=== PATIENT | female | born 1965 | race Caucasian/White ===

== ENCOUNTER 2017-02-01 02:04 | Observation (INO) | payer OTHER ==
[~2017-02-01] VITALS: Ht 167.6 cm; Wt 118.8 kg
[~2017-02-01 02:04] MED LIST: ALLOPURINOL300 MG PO; FARXIGA PO; LISINOPRIL-HCT1 EAC1 PO; METFORMIN HCL500 MG PO; PREMARIN0.3 MG PO
[2017-02-01] MEDS ORDERED: LIDOCAINE VISC 2% SOLN 15 ML UDC ONE (05:12)
[2017-02-01] MEDS ORDERED: BELLADONNA ALK/PHENOBARBITAL 5 ML UDC ONE (05:12)
[2017-02-01] MEDS ORDERED: MAGNESIUM/ALUMINUM/SIMETHICONE 30 ML UDC ONE (05:13)
[2017-02-01 05:19] LABS: BASOPHILS # (AUTO) 0.1 (0.0-0.1); BASOPHILS % 0.5 % (0.0-1.0); EOSINOPHILS # (AUTO) 0.4 (0.0-0.4); EOSINOPHILS % 2.6 % (0.0-6.0); HEMATOCRIT 45.6 % (34.2-44.1); HEMOGLOBIN 15.4 g/dL (12.0-16.0); LYMPHOCYTES # (AUTO) 5.8 (1.0-3.2); LYMPHOCYTES % 40.2 % (18.0-39.1); MEAN CORPUSCULAR HEMOGLOBIN 31.6 pg (28-32); MEAN CORPUSCULAR HGB CONC 33.8 g/dL (31-35); MEAN CORPUSCULAR VOLUME 93.6 fL (81-99); MONOCYTES # (AUTO) 0.8 (0.2-0.8); MONOCYTES % 5.2 % (4.4-11.3); NEUTROPHILS # (AUTO) 7.3 (2.1-6.9); NEUTROPHILS % 50.6 % (38.7-80.0); PLATELET COUNT 390 x10e3/uL (140-360); RED BLOOD COUNT 4.87 x10e6/uL (3.6-5.1); RED CELL DISTRIBUTION WIDTH 12.2 % (11.7-14.4)
[2017-02-01 05:21] LABS: ALBUMIN 4.2 g/dL (3.5-5.0); ALBUMIN/GLOBULIN RATIO 1.2 (0.8-2.0); ANION GAP 16.6 mmol/L (8-16); CALCIUM 11.1 mg/dL (8.4-10.2); CREATINE KINASE MB 1.1 ng/mL (0.00-5.00); CREATININE, SERUM 0.98 mg/dL (0.57-1.11); POTASSIUM 4.6 mmol/L (3.5-5.1); TROPONIN I 0.016 ng/mL (0-0.300)
[2017-02-01 06:01] LABS: AMYLASE 101 U/L (25-125); LIPASE 89 U/L (8-78)
[2017-02-01 06:09] LABS: TROPONIN I 0.024 ng/mL (0-0.300)
[2017-02-01] MEDS ORDERED: ONDANSETRON HCL INJ 2 MG/ML VIAL IV STA (06:45)
[2017-02-01] MEDS ORDERED: ONDANSETRON HCL INJ 2 MG/ML VIAL ONE (06:49)
[2017-02-01] MEDS ORDERED: PANTOPRAZOLE 40 MG 10ML VIAL IV STA (07:09)
[2017-02-01] MEDS ORDERED: NITROGLYCERIN 0.4 MG SUBL SL PRN (07:15)
[2017-02-01] MEDS: PANTOPRAZOLE 40 MG 10ML VIAL IV SCH (07:36)
[2017-02-01] MEDS: ASPIRIN 81 MG ENTERIC COATED PO SCH (07:36)
[2017-02-01 09:31] VITALS: BP 134/63
[2017-02-01 09:55] VITALS: BP 134/63
--- NOTE | 2017-02-01 10:53 | Diagnostic Imaging Report ---
EXAMINATION: CHEST 2 VIEWS INDICATION: Chest pain COMPARISON: None FINDINGS: LINES: None. Heart: Normal cardiac silhouette. Vascular: The pulmonary vasculature is within normal limits. Atherosclerotic calcifications of the aortic arch. Mediastinum: No mediastinal, hilar, or axillary mass or lymphadenopathy. Lungs: No parenchymal mass. No focal consolidation. Calcified granuloma in the right upper lobe. Pleura: No pleural effusion. No pneumothorax. Bones: No acute osseous abnormality. Degenerative changes of the thoracic spine. Soft tissues: Normal. Impression: No acute radiographic abnormality. Signed by: Dr. Ashok Vigil M.D. on 02/01/2017 10:50 AM
[2017-02-01] MEDS ORDERED: SIMVASTATIN20 MG PO (11:09)
[2017-02-01 11:38] VITALS: BP 143/72
[2017-02-01] MEDS: MORPHINE SULFATE 2 MG/ML SYR IV PRN ×3 (12:11→21:15)
[2017-02-01 13:57] LABS: CREATINE KINASE MB 0.8 ng/mL (0.00-5.00); TROPONIN I 0.023 ng/mL (0-0.300)
[2017-02-01] MEDS ORDERED: LISINOPRIL 20 MG TAB PO ONE (15:30)
--- NOTE | 2017-02-01 15:32 | Consultation ---
DATE OF CONSULTATION: February 01, 2017 CARDIOLOGY CONSULTATION REQUESTING PHYSICIAN: Dr. Neva Mo. REASON FOR CONSULTATION: Chest pain. HISTORY OF PRESENT ILLNESS: This is a 51-year-old woman with history of morbid obesity, diabetes mellitus, hypertension and hyperlipidemia, who presents with complaints of chest pain. She denies any history of heart disease. She was in her usual state of health when she had sudden onset of chest pain after eating. The pain was worse with swallowing and radiated to the back. It was associated with nausea and vomiting, and she describes it as 8 out of 10 in severity. She denies any edema, orthopnea, PND, lightheadedness or palpitations. REVIEW OF SYSTEMS: Negative except as per HPI. PAST MEDICAL HISTORY 1. Diabetes mellitus. 2. Hypertension. 3. Hyperlipidemia. 4. Morbid obesity. PAST SURGICAL HISTORY 1. Hysterectomy. 2. Tonsillectomy. 3. Cholecystectomy. 4. Achilles tendon surgery. ALLERGIES: NO KNOWN DRUG ALLERGIES. MEDICATIONS: Please see EMR. SOCIAL HISTORY: Denies tobacco or illicit drugs. Drinks alcohol occasionally. FAMILY HISTORY: Noncontributory. PHYSICAL EXAMINATION VITAL SIGNS: Temperature 97.2 degrees, pulse 67, respiratory rate 18, blood pressure 143/72, oxygen saturation 97%. GENERAL: A morbidly obese woman in no acute distress. HEENT: Normocephalic, atraumatic. Pupils equal, no scleral icterus. NECK: Supple. No thyromegaly or cervical lymphadenopathy, no carotid bruits. LUNGS: Clear to auscultation bilaterally. No wheezes or crackles. ABDOMEN: Soft, nontender. EXTREMITIES: No edema. Palpable distal pulses. NEURO: Nonfocal exam. LABS: Troponin 0.023. Sodium 139, potassium 4.6, chloride 103, CO2 24, BUN 26, creatinine 0.98. Lipase 89. WBC 14.3, hemoglobin 15.4, hematocrit 45.6, platelets 390. Chest x-ray: No acute radiographic abnormality. EKG: Normal sinus rhythm. Cannot rule out anterior infarct, age undetermined. IMPRESSION 1. Chest pain. 2. Diabetes mellitus. 3. Hypertension. 4. Hyperlipidemia. 5. Morbid obesity. RECOMMENDATIONS: The patient has ruled out for a myocardial infarction. Given her risk factors, she warrants ischemic evaluation with nuclear stress test although her symptoms are more suspicious for GI etiology. Check hemoglobin A1c and fasting lipid panel. Thank you for this consult. We will continue to follow. Job#: [id number] EV
[2017-02-01 16:23] LABS: HEMATOCRIT 41.5 % (34.2-44.1); HEMOGLOBIN 14.1 g/dL (12.0-16.0)
[2017-02-01 16:35] LABS: CHOL/HDL RATIO 4.4 (3.0-3.6); CHOLESTEROL 128 MD/DL (0-199); HDL CHOLESTEROL 29 MG/DL (40-60); TRIGLYCERIDES 474 MG/DL (0-149)
--- NOTE | 2017-02-01 16:50 | Diagnostic Imaging Report ---
EXAM: CTA Chest WITH contrast INDICATION: Chest pain COMPARISON: None available TECHNIQUE: Chest was scanned utilizing a multidetector helical scanner from the lung apex through the level of the diaphragm before and after administration of IV contrast. Coronal and sagittal reconstructions were submitted for interpretation. Protocol: Dissection protocol IV CONTRAST: 100 mL of Isovue 370 COMPLICATIONS: None RADIATION DOSE: Total exam DLP: 1039.8 mGy*cm. CTDIvol has been reviewed. It is below the limits set by the Radiation Protocol Committee (RPC). FINDINGS: LINES/ TUBES: None. Heart: No cardiomegaly. No pericardial effusion. Vessels: No intraluminal filling defect within the pulmonary arteries to the segmental level. Normal thoracic aorta and coronary arteries. Mediastinum: No mediastinal or hilar mass or lymphadenopathy. Calcified mediastinal lymph nodes. Normal thyroid. Lungs: No parenchymal mass. No focal consolidation. Normal parenchyma. Calcified granuloma in the right upper lobe. Pleura: No pleural effusion. No pneumothorax. Soft tissues: Normal. No axillary mass or lymphadenopathy. Bones: No acute osseous abnormality. Degenerative changes of the thoracic spine. Adrenal glands: No adrenal nodules.. Abdomen: The partially visualized portions of the upper abdomen are unremarkable. Punctate calcifications in the spleen. IMPRESSION: 1. No evidence of aortic dissection. 2. No acute abnormality of the chest. Signed by: Dr. Ashok Vigil M.D. on 02/01/2017 4:47 PM
[2017-02-01 16:51] VITALS: BP 145/75
[2017-02-01] MEDS ORDERED: IOPAMIDOL 370 MG/ML 200 ML INFUS..BTL INJ ONE (18:13)
[2017-02-01] MEDS ORDERED: SODIUM CHLORIDE 0.9% 100 ML 100 ML ONE (18:13)
[2017-02-01 19:59] VITALS: BP 131/79
[2017-02-01] MEDS: SIMVASTATIN 20 MG TAB PO SCH (20:01)
[2017-02-01] MEDS: ESTROGENS CONJUGATED 0.3 MG TAB PO SCH (20:01)
[2017-02-01] MEDS: ALLOPURINOL 300 MG TAB PO SCH (20:01)
[2017-02-01] MEDS: ONDANSETRON HCL INJ 2 MG/ML VIAL IV PRN (21:15)
[2017-02-02] VITALS: BP 114/70
[2017-02-02 04:00] VITALS: BP 124/77
[2017-02-02 06:48] LABS: BASOPHILS # (AUTO) 0.1 (0.0-0.1); BASOPHILS % 0.4 % (0.0-1.0); EOSINOPHILS # (AUTO) 0.5 (0.0-0.4); EOSINOPHILS % 3.7 % (0.0-6.0); HEMATOCRIT 42.6 % (34.2-44.1); HEMOGLOBIN 14.3 g/dL (12.0-16.0); LYMPHOCYTES # (AUTO) 4.1 (1.0-3.2); LYMPHOCYTES % 33.3 % (18.0-39.1); MEAN CORPUSCULAR HEMOGLOBIN 31.4 pg (28-32); MEAN CORPUSCULAR HGB CONC 33.6 g/dL (31-35); MEAN CORPUSCULAR VOLUME 93.6 fL (81-99); MONOCYTES # (AUTO) 0.8 (0.2-0.8); MONOCYTES % 6.5 % (4.4-11.3); NEUTROPHILS # (AUTO) 6.8 (2.1-6.9); NEUTROPHILS % 55.2 % (38.7-80.0); PLATELET COUNT 317 x10e3/uL (140-360); RED BLOOD COUNT 4.55 x10e6/uL (3.6-5.1); RED CELL DISTRIBUTION WIDTH 12.2 % (11.7-14.4)
[2017-02-02 07:17] LABS: ALANINE AMINOTRANSFERASE 24 IU/L (0-55); ALBUMIN 3.6 g/dL (3.5-5.0); ALBUMIN/GLOBULIN RATIO 1.2 (0.8-2.0); ALKALINE PHOSPHATASE 58 IU/L (40-150); AMYLASE 79 U/L (25-125); ANION GAP 12.9 mmol/L (8-16); BLOOD UREA NITROGEN 20 mg/dL (7-26); BUN/CREATININE RATIO 21 (6-25); CALCIUM 9.1 mg/dL (8.4-10.2); CARBON DIOXIDE 28 mmol/L (22-29); CHLORIDE 103 mmol/L (98-107); CHOL/HDL RATIO 3.7 (3.0-3.6); CHOLESTEROL 112 MD/DL (0-199); CREATININE, SERUM 0.94 mg/dL (0.57-1.11); EST GLOMERULAR FILTRATION RATE > 60 ML/MIN (60-); GLUCOSE 160 mg/dL (74-118); HDL CHOLESTEROL 30 MG/DL (40-60); LDL CHOLESTEROL 24 MG/DL (60-130); LIPASE 70 U/L (8-78); POTASSIUM 4.9 mmol/L (3.5-5.1); SODIUM 139 mmol/L (136-145); TRIGLYCERIDES 290 MG/DL (0-149)
[2017-02-02] MEDS: PANTOPRAZOLE SOD 40 MG TABEC PO SCH (07:30)
[2017-02-02 08:18] VITALS: BP 111/71
[2017-02-02] MEDS: METFORMIN HCL 500 MG TAB PO SCH (08:45)
[2017-02-02] MEDS: FARXIGA PO SCH (08:46)
[2017-02-02] MEDS ORDERED: REGADENOSON 0.4 MG/5 ML SYR IV ONE (11:02)
[2017-02-02] MEDS: MORPHINE SULFATE 2 MG/ML SYR IV PRN ×2 (11:36→16:34)
[2017-02-02] MEDS: ONDANSETRON HCL INJ 2 MG/ML VIAL IV PRN (11:36)
[2017-02-02 12:28] VITALS: BP 127/79
[2017-02-02] MEDS: ASPIRIN 81 MG ENTERIC COATED PO SCH (13:01)
[2017-02-02] MEDS: PANTOPRAZOLE 40 MG 10ML VIAL IV SCH (13:01)
[2017-02-02] MEDS: LISINOPRIL 20 MG TAB PO SCH (13:01)
[2017-02-02] MEDS ORDERED: PANTOPRAZOLE 40 MG 10ML VIAL IV ONE (13:30)
--- NOTE | 2017-02-02 13:39 | Progress Note ---
DATE: February 02, 2017 CARDIOLOGY PROGRESS NOTE SUBJECTIVE: Patient denies chest pain or shortness of breath. She is seen for a nuclear stress test. OBJECTIVE VITAL SIGNS: Temperature 98.1 degrees, pulse 75, respiratory rate 18, blood pressure 111/71, oxygen saturation 96% on room air. GENERAL: Awake, alert, in no acute distress. LUNGS: Clear to auscultation bilaterally. No wheezes or crackles. CARDIOVASCULAR: Normal rate, regular rhythm. No murmur. Normal S1 and S2. ABDOMEN: Soft, nontender. EXTREMITIES: No edema. CARDIAC MEDICATIONS 1. Simvastatin 20 mg p.o. nightly. 2. Aspirin 81 mg p.o. daily. 3. Lisinopril 20 mg p.o. daily. LABS: WBC 12.3, hemoglobin 14.3, hematocrit 42.6, platelets 317. Sodium 139, potassium 4.9, chloride 103, CO2 28, BUN 20, creatinine 0.94. Troponin 0.023. Triglycerides 290, cholesterol 112, LDL 24, HDL 30. TELEMETRY: Normal sinus rhythm. IMPRESSION 1. Atypical chest pain. 2. Diabetes mellitus. 3. Hypertension. 4. Hyperlipidemia. 5. Morbid obesity. RECOMMENDATIONS: Nuclear stress test has been done to evaluate for ischemia given her multiple risk factors. We will review the images once they are available. However, suspect her symptoms are secondary to GI etiology. Defer decision regarding GI evaluation to primary service. Continue current cardiac medications. The patient's diabetes mellitus has not been well controlled. Discussed glycemic control. Thank you for this consult. We will continue to follow. Job#: [id number] EV
[2017-02-02] MEDS: PANTOPRAZOL 40MG/SOD CHL 0.9% 50 ML IV SCH ×3 (14:05→23:28)
--- NOTE | 2017-02-02 15:24 | Cardiology Report ---
DATE OF STUDY: February 02, 2017 NUCLEAR STRESS TEST PROCEDURE TITLE: Rest/stress single isotope SPECT imaging with pharmacologic stress and gated SPECT imaging. INDICATIONS: Chest pain. PROCEDURE: Pharmacologic stress testing was performed with regadenoson per protocol. The heart rate was 82 beats per minute at baseline and increased to 114 beats per minute during the regadenoson infusion. The rest blood pressure was 134/77 and increased to 149/75 mmHg, which is a normal response. The patient did not develop any symptoms. The resting electrocardiogram demonstrated normal sinus rhythm. There were no ST segment changes suggestive of myocardial ischemia. Next, myocardial perfusion imaging was performed at rest following the injection of 10 millicuries of tetrofosmin. At peak pharmacologic effect, the patient was injected with 30 millicuries of tetrofosmin. Gated poststress tomographic imaging was performed. The overall quality of the study is fair. The left ventricular cavity is noted to be normal size on the rest and stress studies. SPECT images demonstrate homogeneous tracer distribution throughout the myocardium. Gated SPECT imaging reveals normal myocardial thickening and wall motion. The left ventricular ejection fraction was calculated to be 67%. IMPRESSION: Myocardial perfusion imaging is normal. Overall left ventricular systolic function was normal without regional wall motion abnormalities. Job#: [id number] EV
[2017-02-02 16:14] VITALS: BP 108/67
[2017-02-02] MEDS: ESTROGENS CONJUGATED 0.3 MG TAB PO SCH (20:23)
[2017-02-02] MEDS: SIMVASTATIN 20 MG TAB PO SCH (20:23)
[2017-02-02] MEDS: ALLOPURINOL 300 MG TAB PO SCH (20:23)
[2017-02-02 20:44] VITALS: BP 104/65
[2017-02-03 01:18] VITALS: BP 127/70
[2017-02-03] MEDS: PANTOPRAZOL 40MG/SOD CHL 0.9% 50 ML IV SCH ×4 (03:49→20:00)
[2017-02-03 05:03] VITALS: BP 102/56
[2017-02-03] MEDS: PANTOPRAZOLE SOD 40 MG TABEC PO SCH (07:30)
[2017-02-03 07:57] VITALS: BP 123/74
--- NOTE | 2017-02-03 08:59 | Progress Note ---
DATE: February 03, 2017 CARDIOLOGY PROGRESS NOTE SUBJECTIVE: No new complaints. Chest pain persists and worse with swallowing. Per patient, scheduled for GI evaluation today. OBJECTIVE VITALS: Temperature 97.2, heart rate 81, respiratory rate 18, blood pressure 123/74, O2 sat 96% on room air. GENERAL: Acute distress. Alert. NECK: JVD. CHEST: Clear to auscultation. CARDIOVASCULAR: Regular rate and rhythm. Normal S1 and S2. No S3. No S4. ABDOMEN: Soft. EXTREMITIES: No edema. CARDIOVASCULAR MEDICATIONS 1. Simvastatin 20 mg p.o. daily. 2. Lisinopril 20 mg daily. 3. Aspirin 81 mg daily. Studies reviewed. White blood cells 12.3, hemoglobin 14.3 and platelets 317,000. Serial enzymes negative. Creatinine is 0.94. Triglycerides elevated at 290, total cholesterol 112, LDL 24, and HDL 30. Amylase 79 and lipase 70. Telemetry is sinus rhythm. Telemetry has been discontinued now. Normal resting stress images with LVEF of 67%. ASSESSMENT 1. Atypical chest pain/odynophagia. 2. Diabetes mellitus. 3. Hypertension. 4. Dyslipidemia, mixed. 5. Obesity. RECOMMENDATIONS 1. Agree with GI evaluation and PPI. Can hold aspirin as needed. 2. Continue risk factor modification, including weight loss, heart-healthy diet and of cardiovascular risk factors on discharge. Job#: [id number] MARINA
[2017-02-03] MEDS: FARXIGA PO SCH (09:00)
[2017-02-03] MEDS: PANTOPRAZOLE 40 MG 10ML VIAL IV SCH (09:00)
[2017-02-03] MEDS: ASPIRIN 81 MG ENTERIC COATED PO SCH (11:20)
[2017-02-03] MEDS: METFORMIN HCL 500 MG TAB PO SCH (11:20)
[2017-02-03] MEDS: LISINOPRIL 20 MG TAB PO SCH (11:21)
--- NOTE | 2017-02-03 11:24 | Operative Report ---
DATE OF PROCEDURE: February 03, 2017 REFERRING PHYSICIAN: Dr. Elroy Salgado PROCEDURE PERFORMED: Esophagogastroduodenoscopy with biopsies. INDICATIONS FOR EGD: Severe odynophagia. MEDICATION: Patient was done under MAC. Please see anesthesiologist's note. PROCEDURE: With the patient in the left lateral decubitus position, the flexible fiberoptic Olympus gastroscope was introduced into the esophagus under direct visualization without any difficulty. The mucosa overlying the esophagus was diffusely erythematous and somewhat friable, and biopsies were obtained. The scope was then advanced with ease into the stomach, traversing a small sliding hiatal hernia. Mucosa overlying the antrum and the body revealed some diffuse erythema and low-grade edema, and biopsies were obtained and sent to stain for H. pylori. The pylorus was of normal contour and shape. It was intubated with ease, and the scope was advanced all the way to the 2nd portion of the duodenum. Biopsies were obtained from the proximal 2nd portion to rule out sprue considering the patient's history of diarrhea. The scope was then withdrawn back into the stomach and retroflexed, and the mucosa overlying the fundus and the cardia appeared to be within normal limits. The scope was then straightened out. The stomach was decompressed. Scope was subsequently withdrawn. Patient tolerated the procedure well. IMPRESSION 1. Diffuse esophagitis. 2. Small sliding hiatal hernia. 3. Gastritis, biopsied. Biopsies sent to stain for H. pylori. 4. Rule out sprue. PLAN: Follow up histology. Initiate Protonix 40 mg 1 p.o. a.c. b.i.d. Job#: [id number] cc:ELORY SALGADO DO
[2017-02-03 12:03] VITALS: BP_SYST 57
[2017-02-03 15:56] VITALS: BP 115/65
[2017-02-03] MEDS ORDERED: LIDOCAINE HCL 2% LOCAL INJ 5 ML SDV VIAL INJ ONE (17:09)
[2017-02-03] MEDS ORDERED: PROPOFOL IV EMULSION 10 MG/ML 50 ML VIAL ONE (17:09)
[2017-02-03] MEDS ORDERED: FENTANYL CITRATE/PF 100MCG/2 ML INJ ONE (18:00)
[2017-02-03] MEDS ORDERED: MIDAZOLAM HCL 2 MG/2 ML VIAL ONE (18:00)
[2017-02-03 20:11] VITALS: BP 110/43
[2017-02-03] MEDS: ESTROGENS CONJUGATED 0.3 MG TAB PO SCH (20:27)
[2017-02-03] MEDS: SIMVASTATIN 20 MG TAB PO SCH (20:27)
[2017-02-03] MEDS: ALLOPURINOL 300 MG TAB PO SCH (20:28)
[2017-02-27] MEDS ORDERED: COLESTIPOL HCL1 GM PO (15:10)
[2017-02-27] MEDS ORDERED: OMEPRAZOLE40 MG PO (15:10)
[2017-02-27] MEDS ORDERED: SUCRALFATE1 GM PO (15:11)
[2017-02-27] MEDS ORDERED: FISH OIL 1,4001 EACH PO (15:12)
[2017-02-27] MEDS ORDERED: ECHINACEA80 MG PO (15:12)
--- NOTE | 2017-03-20 21:20 | Discharge Summary ---
CHIEF COMPLAINT: Chest pain. FINAL DIAGNOSES: 1. Odynophagia. 2. Atypical chest pain. 3. Diabetes type 2. PROCEDURE: EGD with biopsies. DISPOSITION: Home. A 51-year-old female with known history of diabetes type 2, hypertension morbid obesity, hypertriglyceridemia brought to the ER with a sudden onset of retrosternal chest pain occurred while having dinner. Not relieved with Rolaids x6. Chest pain associated with nausea, radiating to the back. No diaphoresis. No history of exertional angina. Positive dyspepsia. The patient underwent further review and evaluation in the ER and following evaluation, admission was made to the facility for evaluation regarding atypical chest pain, diabetes type 2, hypertension, hypertriglyceridemia. Will be monitoring the patient's three sets of cardiac enzymes. Will request a cardiology follow. Home medications will be continued. As her stay was under way in the facility, being evaluated by cardiology through Dr. Harrison related to her chest pain and following her evaluation her impression was chest pain, diabetes mellitus, hypertension, hyperlipidemia and morbid obesity. She states that with her current cardiac enzymes she has been ruled out for an WA. However, given her risk factors she warrants ischemic evaluation with a nuclear stress test, although her symptoms are more suspicious from GI standpoint. From the ER she had been placed in IMCU and she was receiving routine IMCU protocol orders, on an ADA diet. Still having complaints of severe chest pain with swallowing. Her vital signs remaining stable. She had been started on aspirin, morphine sulfate for pain, nitroglycerin 0.4 mg sublingual every 5 minutes times 3 for chest pain. Daily medications are being copied and reconciled. Laboratory studies were showing stable electrolytes. Kidney functions stable. Glucose 160. CBC was showing an elevated white cell count of 12,000. She continued her cardiology follow. She underwent a nuclear stress test. She states that the diabetes mellitus has not been well controlled. Her stress test returned as being unremarkable, stating her assessment was atypical chest pain/odynophagia. Agree with the PPI initiation. She was then being seen by GI through Dr. Lobo Mo regarding exacerbation of chest pain with swallowing and with Dr. Lobo Mo's review, his impression was chest pain, non- cardiac, odynophagia, history of dark stools, rule out esophageal ulcer with reflux. The patient will be scheduling for an EGD. The EGD was carried out. However, post procedure she was still having issues with the complaints of odynophagia. She was being maintained in IMCU. She was continuing to be managed on her medications. A repeat white cell count was still at12,300 and following her EGD once stabilized she was able to be discharged home. EKGs are showing normal sinus rhythm. Cannot rule out anterior infarct age undetermined. Following with an echocardiogram showing ejection fraction between 65% and 70%, there was no evidence of pericardial effusion. She was taken to surgery for the EGD by Dr. Lobo Mo regarding indications for severe odynophagia. Following completion of her preps, she arrived at the surgery suite. She was set up for the EGD. The procedure was performed and findings were showing diffuse esophagitis, small sliding hiatal hernia, gastritis, rule out sprue. She began Protonix 40 mg 1 tablet p.o. a.c. b.i.d. The remainder of her stay was unremarkable. She stabilized following the procedure and she was cleared for discharge once that occurred. She was discharged home. She will continue on her current diet. No equipment or supplies necessary, drain or Ndiaye needed. Activity level as tolerated. She will be following back up with Dr. Lobo Mo's office, scheduled an appointment for 1 week. She was given prescription for Protonix 40 mg 1 tablet p.o. daily. She will also be continuing her routine daily medications. She will be reporting back to her PCP within 7 to 10 days. Dictated By: LINUS Harvey Job#: [id number]
== END 2017-02-03 20:48 | disposition home or self-care (01) ==
LOC: ER 02:04 → ERHOLD 07:21 → IMCU 08:46
DX: K21.0 Gastro-esophageal reflux disease with esophagitis (principal); R07.89 Other chest pain; I10 Essential (primary) hypertension; E78.5 Hyperlipidemia, unspecified; E66.01 Morbid (severe) obesity due to excess calories; R13.10 Dysphagia, unspecified; K44.9 Diaphragmatic hernia without obstruction or gangrene; K29.70 Gastritis, unspecified, without bleeding; E11.65 Type 2 diabetes mellitus with hyperglycemia; Z68.41 Body mass index [BMI] 40.0-44.9, adult
CPT/HCPCS: 36415 ×2; 43239; 71020; 71275; 78452; 80053 ×2; 80061 ×2; 82150 ×2; 82550; 82553; 83036; 83690 ×2; 84484; 85014; 85018; 85025 ×2; 88305; 88312; 93005; 93017; 93306; 99285; A9502; G0378 ×3; J2001; J2250; J2270 ×2; J2405 ×2; Q9967

== ENCOUNTER → 2017-02-27 | Day surgery (SDC) | payer OTHER ==
[~2017-02-27] MED LIST changes: +COLESTIPOL HCL1 GM PO; +ECHINACEA80 MG PO; +FENTANYL CITRATE/PF 100MCG/2 ML INJ ONE; +FISH OIL 1,4001 EACH PO; +FLUCONAZOLE 200 MG/100 ML 100 ML IV ONE; +METOCLOPRAMIDE HCL 10 MG/2ML VIAL ONE; +MIDAZOLAM HCL 2 MG/2 ML VIAL ONE; +OMEPRAZOLE40 MG PO; +PROPOFOL IV EMULSION 10 MG/ML 50 ML VIAL ONE; +SIMVASTATIN20 MG PO; +SUCRALFATE1 GM PO
--- NOTE | 2017-02-27 18:44 | Operative Report ---
DATE OF PROCEDURE: February 27, 2017 REFERRING PHYSICIAN: Dr. Elroy Salgado. PROCEDURE PERFORMED: EGD with brushing and esophageal dilatation. INDICATIONS FOR PROCEDURE: Dysphagia. MEDICATION: Patient was done under MAC. Please see anesthesiologist's note. PROCEDURE: With patient in the left lateral decubitus position. flexible fiberoptic Olympus gastroscope was introduced into the esophagus under direct visualization without any difficulty. There was some diffuse erythema and some friability noted pretty much throughout the esophagus. There were some scattered whitish plaques also noted and those were brushed and sent to stain for Sadie. There was a mild stricture noted at the GE junction that was dilated to size 50-Citizen Of [place] Yang. The scope was then advanced with ease into the stomach traversing a small sliding hiatal hernia. Mucosa overlying the antrum and the body revealed some diffuse erythema. The pylorus was intubated with ease and the scope was advanced all the way to the 2nd portion of the duodenum. A nodule was noted in the proximal 2nd portion proximal to the ampulla and that was biopsied. The scope was then withdrawn slowly. Mucosa overlying the duodenal bulb appeared to be within normal limits. The scope was then withdrawn back into the stomach and retroflexed and mucosa overlying the fundus and the cardia appeared to be within normal limits. The scope was then straightened out. The stomach was decompressed. The scope was subsequently withdrawn. Patient tolerated the procedure well. IMPRESSION: 1. Rule out Sadie esophagitis. 2. Mild stricture at gastroesophageal junction dilated to a size 50-Citizen [place] Yang. 3. Small sliding hiatal hernia. 4. Gastritis, mild. PLAN: Follow up histology. Follow up brushings. Initiate Diflucan 200 mg one p.o. daily and increase omeprazole to 40 mg 1 p.o. a.c. b.i.d. Job#: [id number] cc:ELROY SALGADO DO
== END | disposition home or self-care (01) ==
LOC: OR 14:05
PROVIDERS: ATTEND Internal Medicine Gastroenterology
DX: K22.2 Esophageal obstruction (principal); K29.70 Gastritis, unspecified, without bleeding; K20.9 Esophagitis, unspecified; K31.89 Other diseases of stomach and duodenum; K44.9 Diaphragmatic hernia without obstruction or gangrene; R19.7 Diarrhea, unspecified; E11.9 Type 2 diabetes mellitus without complications; I10 Essential (primary) hypertension; M10.9 Gout, unspecified; Z68.41 Body mass index [BMI] 40.0-44.9, adult; Z80.0 Family history of malignant neoplasm of digestive organs
CPT/HCPCS: 36415; 43239; 43450; 82948; J1450; J2250; J2765

== ENCOUNTER → 2017-05-20 | Day surgery (SDC) | payer OTHER ==
[~2017-05-20] MED LIST changes: -FLUCONAZOLE 200 MG/100 ML 100 ML IV ONE; +KETAMINE HCL INJ 50 MG/ML 10 ML VIAL ONE; -METOCLOPRAMIDE HCL 10 MG/2ML VIAL ONE; -MIDAZOLAM HCL 2 MG/2 ML VIAL ONE; +MIDAZOLAM HCL 5MG/ML 2ML VIAL ONE; +PROPOFOL IV EMULSION 10 MG/ML 20 ML VIAL ONE; -PROPOFOL IV EMULSION 10 MG/ML 50 ML VIAL ONE
--- OUTSIDE RECORDS SUMMARY | 2017-05-20 13:09 | XMS REPORT ---
Author Author [facility] Address Unknown Phone Unavailable Care Team Providers Care Group Burner Machine Name Role Phone DEBI GARRIDO Unavailable Unavailable Problems This patient has no known problems. Allergies, Adverse Reactions, Alerts This patient has no known allergies or adverse reactions. Medications This patient has no known medications. Results Test Description Test Time Test Comments Text Results Atomic Results Result Comments Stress Test - Treadmill ONLY [place] [address] Patient Name : FREDDY QUINTANA MR #: [id number] : 1965 Age/Sex: 51/F Adm Physician : DEBI GARRIDO MD Admit Date : 02/01/17 Location : [facility] Room/Bed : [place] [address] REPORT: Cardiology Report DATE OF STUDY: February 02, 2017 NUCLEAR STRESS TEST PROCEDURE TITLE: Rest/stress single isotope SPECT imaging with pharmacologic stress and gated SPECT imaging. INDICATIONS: Chest pain. PROCEDURE: Pharmacologic stress testing was performed with regadenoson per protocol. The heart rate was 82 beats per minute at baseline and increased to 114 beats per minute during the regadenoson infusion. The rest blood pressure was 134/77 and increased to 149/75 mmHg, which is a normal response. The patient did not develop any symptoms. The resting electrocardiogram demonstrated normal sinus rhythm. There were no ST segment changes suggestive of myocardial ischemia. Next, myocardial perfusion imaging was performed at rest following the injection of 10 millicuries of tetrofosmin. At peak pharmacologic effect, the patient was injected with 30 millicuries of tetrofosmin. Gated poststress tomographic imaging was performed. The overall quality of the study is fair. The left ventricular cavity is noted to be normal size on the rest and stress studies. SPECT images demonstrate homogeneous tracer distribution throughout the myocardium. Gated SPECT imaging reveals normal myocardial thickening and wall motion. The left ventricular ejection fraction was calculated to be 67%. IMPRESSION: Myocardial perfusion imaging is normal. Overall left ventricular systolic function was normal without regional wall motion abnormalities. 12: 41 Job#: [id number] EV Signature Date Dictated By: ELZA DELANEY MD Transcribed By: [facility] on 02/02/17 < Electronically signed by ELZA DELANEY MD><<Signature on File>>02/27/17 1605 COPY TO: CTA CHEST [place] [address] Patient Name: FREDDY QUINTANA MR #: [id number] : 1965 Age/Sex: 51/F Req #: [id number] Adm Physician: DEBI GARRIDO MD Ordered by: ELZA DELANEY MD Report #: [id number] Location: [facility] Room/Bed: [place] [address] _ Procedure: [id number] CT/CTA CHEST Exam Date: 02/01/17 Exam Time: 1600 REPORT STATUS: Signed EXAM: CTA Chest WITH contrast INDICATION: Chest pain COMPARISON: None available TECHNIQUE: Chest was scanned utilizing a multidetector helical scanner from the lung apex through the level of the diaphragm before and after administration of IV contrast. Coronal and sagittal reconstructions were submitted for interpretation. Protocol: Dissection protocol IV CONTRAST: 100 mL of Isovue 370 COMPLICATIONS: None RADIATION DOSE: Total exam DLP: 1039.8 mGy*cm. CTDIvol has been reviewed. It is below the limits set by the Radiation Protocol Committee (RPC). FINDINGS: LINES/ TUBES: None. Heart: No cardiomegaly. No pericardial effusion. Vessels: No intraluminal filling defect within the pulmonary arteries to the segmental level. Normal thoracic aorta and coronary arteries. Mediastinum: No mediastinal or hilar mass or lymphadenopathy. Calcified mediastinal lymph nodes. Normal thyroid. Lungs: No parenchymal mass. No focal consolidation. Normal parenchyma. Calcified granuloma in the right upper lobe. Pleura: No pleural effusion. No pneumothorax. Soft tissues: Normal. No axillary mass or lymphadenopathy. Bones: No acute osseous abnormality. Degenerative changes of the thoracic spine. Adrenal glands: No adrenal nodules.. Abdomen: The partially visualized portions of the upper abdomen are unremarkable. Punctate calcifications in the spleen. IMPRESSION: 1. No evidence of aortic dissection. 2. No acute abnormality of the chest. Signed by: Dr. Precious Montez M.D. on 4:47 PM Dictated By: PRECIOUS MONTEZ MD 46 Transcribed By: BLUE on 02/01/171646 COPY TO: ELZA DELANEY MD CHEST 2 VIEWS [place] [address] Patient Name: FREDDY QUINTANA MR #: [id number] : 1965 Age/Sex: 51/F Req # : [id number] Adm Physician: DEBI GARRDIO MD Ordered by: JUNE BURNS MD Report #: [id number] Location: [facility] Room/Bed: [place] [address] ___ Procedure: [id number] DX/CHEST 2 VIEWS Exam Date: 02/01/17 Exam Time: 0235 REPORT STATUS: Signed EXAMINATION: CHEST 2 VIEWS INDICATION: Chest pain COMPARISON: None FINDINGS: LINES: None. Heart: Normal cardiac silhouette. Vascular: The pulmonary vasculature is within normal limits. Atherosclerotic calcifications of the aortic arch. Mediastinum: No mediastinal, hilar, or axillary mass or lymphadenopathy. Lungs: No parenchymal mass. No focal consolidation. Calcified granuloma in the right upper lobe. Pleura: No pleural effusion. No pneumothorax. Bones: No acute osseous abnormality. Degenerative changes of the thoracic spine. Soft tissues: Normal. Impression: No acute radiographic abnormality. Signed by: Dr. Precious Montez M.D. on 02/01/2017 10:50 AM Dictated By: PRECIOUS MONTEZ MD 1050 Transcribed By: BLUE on 02/01/17 1050 COPY TO: JUNE BURNS MD
--- NOTE | 2017-05-20 15:16 | Operative Report ---
DATE OF PROCEDURE: May 20, 2017 REFERRING PHYSICIAN: Dr. Elroy Salgado. PROCEDURE PERFORMED: Esophagogastroduodenoscopy with esophageal dilatation and biopsies. INDICATIONS FOR EGD: Dysphagia, nausea. MEDICATION: Patient was done under MAC. Please see anesthesiologist's note. PROCEDURE: With the patient in the left lateral decubitus position, the flexible fiberoptic Olympus gastroscope was introduced into the esophagus under direct visualization without any difficulty. Some linear furrows were noted in the esophagus, which are compatible with eosinophilic esophagitis, which this patient carries a diagnosis. The esophagus was then dilated to size 52-Danish Yang. The scope was then advanced with ease into the stomach, traversing a small sliding hiatal hernia. Mucosa overlying the antrum and the body revealed some diffuse erythema and low-grade to moderate edema, and biopsies were obtained and sent to stain for H. pylori. Pylorus appeared to be of normal contour and shape. It was intubated with ease, and the scope was advanced all the way to the 2nd portion of the duodenum. The scope was then withdrawn slowly. Mucosa overlying the proximal 2nd portion and the duodenal bulb grossly appeared to be within normal limits. The scope was then withdrawn back into the stomach and retroflexed. Mucosa overlying the fundus and cardia appeared to be within normal limits. The scope was then straightened out. The stomach was decompressed. Scope was subsequently withdrawn. Patient tolerated the procedure well. IMPRESSION 1. Eosinophilic esophagitis. 2. Esophagus dilated to a size 52-Danish Yang. 3. Small sliding hiatal hernia. 4. Gastritis, biopsied. Biopsies sent to stain for H. pylori. PLAN: Follow up histology. Continue omeprazole 40 mg 1 p.o. a.c. b.i.d. and Carafate 1 gram p.o. a.c. t.i.d. and nightly. Will get a celiac disease panel. Job#: [id number] cc:ELROY SALGADO DO
[2017-05-23 13:20] LABS: ENDOMYSIAL ANTIBODIES, IGA Negative (Negative)
== END | disposition home or self-care (01) ==
LOC: OR 13:06
PROVIDERS: ATTEND Internal Medicine Gastroenterology
DX: K20.0 Eosinophilic esophagitis (principal); K29.70 Gastritis, unspecified, without bleeding; K44.9 Diaphragmatic hernia without obstruction or gangrene; E11.9 Type 2 diabetes mellitus without complications; I10 Essential (primary) hypertension; M10.9 Gout, unspecified; Z01.810 Encounter for preprocedural cardiovascular examination; Z68.39 Body mass index [BMI] 39.0-39.9, adult; Z80.0 Family history of malignant neoplasm of digestive organs
CPT/HCPCS: 36415; 43239; 43450; 82784; 82948; 83516; 86256; 93005; J2250

== ENCOUNTER → 2018-08-05 | Outpatient (CLI) | payer OTHER ==
[~2018-08-05] MED LIST changes: -FENTANYL CITRATE/PF 100MCG/2 ML INJ ONE; -KETAMINE HCL INJ 50 MG/ML 10 ML VIAL ONE; -MIDAZOLAM HCL 5MG/ML 2ML VIAL ONE; -PROPOFOL IV EMULSION 10 MG/ML 20 ML VIAL ONE
--- NOTE | 2018-08-05 13:05 | Diagnostic Imaging Report ---
EXAM: MRI MRCP WO DATE: 08/05/2018 9:39 AM INDICATION: Right upper quadrant pain COMPARISON: MRCP dated 02/24/2012 TECHNIQUE: MRCP protocol performed using1.5 Christa. Sequences obtained include axial T2 FRFSE FS, coronal and axial T2 SSFSE, SSFSE coronal spins. FINDINGS: Significant signal dropout on out of phase imaging, representing hepatic steatosis. No definite focal hepatic lesion visualized, considering limitations of unenhanced study. Hepatomegaly, measuring 18.9 cm in the midclavicular line. The gallbladder is surgically absent. No evidence of biliary dilatation. Common bile duct is within normal limits without evidence of filling defects. Spleen, pancreas, and adrenal glands are unremarkable. No hydronephrosis. Several bilateral T2 hyperintense renal lesions, probably cysts. Visualized bowel loops are unremarkable. No evidence of bowel obstruction. No abdominal lymphadenopathy. IMPRESSION: No biliary dilatation or filling defects visualized within common bile duct. Status post cholecystectomy. Hepatomegaly with diffuse hepatic steatosis. Bilateral renal cysts. Signed by: Dr. Rubin Stahl MD on 08/05/2018 1:02 PM
== END ==
LOC: MRI 09:32
PROVIDERS: ATTEND Internal Medicine Gastroenterology
DX: R10.11 Right upper quadrant pain (principal)
CPT/HCPCS: 74181

== ENCOUNTER → 2022-05-24 | Outpatient (CLI) | payer BC ==
[~2022-05-24] MED LIST changes: +CRESTOR10 MG PO; +DIATRIZOATE MEGL/DIATRIZOA SOD 30 ML BTL PO ONE; +ENABLEX15 MG PO; +FENOFIBRATE54 MG PO; +IOPAMIDOL 370 MG/ML 100 ML INFUS..BTL INJ ONE; +SODIUM CHLORIDE 0.9% 500ML 500 ML ONE
[2022-05-24 08:47] LABS: CREATININE, SERUM 1.11 mg/dL (0.57-1.11)
== END ==
LOC: CT 07:42
PROVIDERS: ATTEND Nurse Practitioner
DX: R10.32 Left lower quadrant pain (principal)
CPT/HCPCS: 36415; 74177; 82565; 84520; 96360; J7040; Q9963; Q9967

== ENCOUNTER 2022-09-04 05:38 | Emergency (ER) | payer BC ==
[~2022-09-04] VITALS: Ht 167.6 cm; Wt 118.8 kg
[~2022-09-04 05:38] MED LIST changes: -DIATRIZOATE MEGL/DIATRIZOA SOD 30 ML BTL PO ONE; -IOPAMIDOL 370 MG/ML 100 ML INFUS..BTL INJ ONE; -SODIUM CHLORIDE 0.9% 500ML 500 ML ONE
[2022-09-04 06:14] LABS: BASOPHILS # (AUTO) 0.1 (0.0-0.1); BASOPHILS % 0.5 % (0.0-1.0); EOSINOPHILS # (AUTO) 0.5 (0.0-0.4); EOSINOPHILS % 4.6 % (0.0-6.0); HEMATOCRIT 40.3 % (34.2-44.1); HEMOGLOBIN 13.4 g/dL (12.0-16.0); LYMPHOCYTES % 39.1 % (18.0-39.1); MEAN CORPUSCULAR HGB CONC 33.3 g/dL (31-35); MEAN CORPUSCULAR VOLUME 93.3 fL (81-99); MONOCYTES # (AUTO) 0.5 (0.2-0.8); MONOCYTES % 5.3 % (4.4-11.3); NEUTROPHILS # (AUTO) 5.1 (2.1-6.9); NEUTROPHILS % 49.5 % (38.7-80.0); PLATELET COUNT 271 x10e3/uL (140-360); RED BLOOD COUNT 4.32 x10e6/uL (3.6-5.1); RED CELL DISTRIBUTION WIDTH 13.2 % (11.7-14.4)
[2022-09-04] MEDS ORDERED: SODIUM CHLORIDE 0.9% 1000ML 1,000 ML IV STA (06:19)
[2022-09-04] MEDS ORDERED: KETOROLAC TROMETHAMINE 30 MG/ML VIAL IV STA (06:26)
[2022-09-04 06:32] LABS: INR 0.78; PROTHROMBIN TIME 11.4 seconds (11.9-14.5)
[2022-09-04 06:35] LABS: ALBUMIN 3.7 g/dL (3.5-5.0); ALBUMIN/GLOBULIN RATIO 1.2 (0.8-2.0); ANION GAP 17.3 mmol/L (8-16); CALCIUM 9.1 mg/dL (8.4-10.2); CREATININE, SERUM 1.07 mg/dL (0.57-1.11); POTASSIUM 4.3 mmol/L (3.5-5.1)
[2022-09-04 08:11] VITALS: O2SAT 100
== END 2022-09-04 09:00 | disposition home or self-care (01) ==
LOC: ER 05:45
DX: R06.02 Shortness of breath (principal); R07.89 Other chest pain; E11.65 Type 2 diabetes mellitus with hyperglycemia; I10 Essential (primary) hypertension; E78.5 Hyperlipidemia, unspecified; R94.31 Abnormal electrocardiogram [ECG] [EKG]
CPT/HCPCS: 36415; 71046; 80053; 82550; 83735; 84484; 85025; 85379; 85610; 85730; 93005; 99284; J1885; J7030